=== PATIENT | female | born 1980 | race Caucasian/White ===

== ENCOUNTER 2018-10-01 19:29 | Emergency (ER) | payer SELFPAY ==
[~2018-10-01] VITALS: Ht 154.9 cm; Wt 82.2 kg
[2018-10-01 19:35] VITALS: BP 122/78
--- NOTE | 2018-10-01 19:40 | NUR ---
PT AMBULATERD TO BED #4
--- NOTE | 2018-10-01 19:57 | NUR ---
Dr. Kebede evaluating patient at bedside.
[2018-10-01] MEDS ORDERED: KETOROLAC 30 MG/ML VIAL IM ONE (20:00)
--- NOTE | 2018-10-01 20:20 | NUR ---
PT BIB SELF FOR ABD PAIN THAT RADIATIES TO BACK, DESCRIBED CRAMPING. PT STATES PAIN HAS BEEN INTERMITENT TODAY. ABD IS ROUND, SOFT, TENDER, ACTIVE BS X4. PT LAYING IN BED, POSITIONED TO COMFORT. PT DENIES N/V/D. DENIES PMH.
--- NOTE | 2018-10-01 20:23 | NUR ---
PT TO CT VIA WHEELCHAIR.
[2018-10-01 20:27] LABS: BASOPHILS % (AUTO) 0.4 % (0.0-2.0); EOSINOPHILS # (AUTO) 0.3 K/uL (0-0.4); EOSINOPHILS % (AUTO) 4.2 % (0.0-4.0); HEMATOCRIT 33.4 % (36-48); HEMOGLOBIN 11.1 g/dL (12.0-16.0); LYMPHOCYTES # (AUTO) 3.6 K/uL (2.5-16.5); LYMPHOCYTES % (AUTO) 45.6 % (20.5-51.1); MEAN CORPUSCULAR HEMOGLOBIN 32 pg (27-31); MEAN CORPUSCULAR HGB CONC 33 g/dL (33-37); MEAN CORPUSCULAR VOLUME 95.7 fL (80-94); MONOCYTES # (AUTO) 0.5 K/uL (0.8-1.0); MONOCYTES % (AUTO) 6.8 % (1.7-9.3); NEUTROPHILS # (AUTO) 3.4 K/uL (1.8-7.7); PLATELET COUNT (AUTO) 202 K/uL (140-450); RED CELL DISTRIBUTION WIDTH 13.2 % (11.6-13.7); WHITE BLOOD COUNT (AUTO) 7.9 K/uL (4.8-10.8)
[2018-10-01] MEDS ORDERED: KETOROLAC 30 MG/ML VIAL ONE (20:33)
--- NOTE | 2018-10-01 20:42 | NUR ---
PT RETURN FROM CT
[2018-10-01 20:56] LABS: ALBUMIN 3.4 g/dL (3.4-5.0); ANION GAP 10.6 (8-16); CARBON DIOXIDE 27.2 mmol/L (21-32); CREATININE 0.7 mg/dL (0.6-1.3); POTASSIUM 3.8 mmol/L (3.5-5.1); TOTAL BILIRUBIN 0.2 mg/dL (0.0-1.0)
[2018-10-01 21:37] LABS: APPEARANCE,URINE CLEAR (CLEAR); BILIRUBIN,URINE NEGATIVE (NEGATIVE); BLOOD, URINE NEGATIVE (NEGATIVE); COLOR,URINE YELLOW (YELLOW); LEUKOCYTE ESTERASE ,URINE NEGATIVE (NEGATIVE); NITRITE, URINE NEGATIVE (NEGATIVE); UGLUCOSE NEGATIVE (NEGATIVE)
[2018-10-01] MEDS ORDERED: LACTULOSE 20 GM/30 ML UDC PO ONE (22:00)
[2018-10-01] MEDS ORDERED: LACTULOSE 20 GM/30 ML UDC ONE (22:12)
[2018-10-01 22:20] VITALS: BP 127/43
== END 2018-10-01 22:20 | disposition home or self-care (01) ==
LOC: MED 19:29
DX: K59.00 Constipation, unspecified (principal); Z90.49 Acquired absence of other specified parts of digestive tract
CPT/HCPCS: 36415; 74176; 80053; 81003; 81025; 83690; 85025; 96372; 99284; J1885